=== PATIENT | male | born 2005 | race Caucasian/White ===

== ENCOUNTER 2023-04-23 16:12 | Outpatient (AMB) | payer OTHER, SELFPAY ==
--- NOTE | 2023-04-23 16:18 | AM.OFFWIN_ITS ---
Intake Vital Signs 04/23/23 16:32 Weight 178 lb BP 116/74 Blood Pressure Location Rt brachial Position Sitting Pulse 84 Pulse Source Pulse Oximeter Temp 98.6 F Temp Source Temporal Artery Scan Pulse Oximetry (%) 97 Oxygen Delivery Method Room Air Intake Visit Reasons: EST/congestion Intake Note: Patient here for some congestion that has been present for about 3 days. today he is feeling better but he had chest pain which made it harder to breath, vomiting. Mom states he had asthma as a child and was on a nebulizer and inhaler. Patient Tobacco Use Status: Never used Tobacco Allergies No Known Allergies Allergy (Verified 04/23/23 16:36) Do you need a note to return to daycare/school/sports/work: Yes HPI HPI Comments History of Present Illness Details 17-year-old otherwise healthy male who p resents for chest congestion. Patient states that he developed a viral respiratory infection approximately 2 days ago experiencing coughing congestion. Since then his cough and congestion is improved but he has been experiencing some pain with deep inspiration and some generalized fatigue. Denies fevers chills other symptoms PFSH Social History Patient Tobacco Use Status: Never used Tobacco Review of Systems Const All systems reviewed & are unremarkable except as noted in HPI and below Resp Reports chest congestion and Reports cough Physical Exam Vital Signs: Last Vital Signs Temp 98.6 F 04/23/23 16:32 Pulse 84 04/23/23 16:32 BP 116/74 04/23/23 16:32 Pulse Ox 97 04/23/23 16:32 Oxygen Delivery Method Room Air 04/23/23 16:32 Const General: cooperative, no acute distress and alert Orientation/consciousness: patient oriented x3 Limitations: no limitations HEENT Head: Yes normal to inspection Ears: hearing grossly normal bilaterally and external ears normal General nose exam: Normal external nose present Eyes General: appearance normal, both eyes and all related structures Neck Neck: Yes normal visual inspection Chest Chest palpation & inspection: normal inspection of the chest Resp Effort & Inspection: normal respiratory effort, able to speak in complete sent ences and no audible wheezes Auscultation: clear to auscultation bilaterally Cardio Rate: regular rate Rhythm: regular rhythm GI Inspection: Yes normal to inspection Palpation (GI): Soft to palpation and nontender Skin General skin exam: no rashes or lesions noted Neuro General: patient oriented x3 Psych Appearance: grossly normal Mental Status: mental status grossly normal Speech and movement: Normal speech and movement present Affect: normal affect Attitude: cooperative Thought process: Normal thought process present Thought content: Normal thought content present Assessment & Plan Assessment & Plan (1) Pleurisy: Code(s): R09.1 - Pleurisy Plan: VSs per exam patient presents alert and oriented no acute distress exam is otherwise unremarkable note above given patient's symptoms likely suffering from post viral fatigue and pleurisy. Low suspicion for acute pathology at this time recommend symptomatic treatment if symptoms do not improve patient can follow up in 1 week for for chest x-ray. Discharge instructions, follow up and treatment are discussed with patient in my usual fashion. Alternatives in treatment are also discussed. The patient will return for worsening symptoms or as needed. Advised that any labs/imaging ordered will be followed up on and contact made if further treatment needed. Counseled that patient's condition may require further evaluation and/or tr eatment. Symptoms of concern for worsening disorder discussed in detail in my customary manner. Patient does verbalize understanding of the plan, there are no apparent barriers to communication. The patient is given the opportunity to ask questions and have them answered to his/her satisfaction Coding Level of Care Code Est Pt Level 2 (10773) Diagnoses Pleurisy R09.1
[2023-04-23 16:32] VITALS: BP 116/74; PULSE 84; TEMP 37; O2SAT 97
== END 2023-04-23 16:47 | disposition home or self-care (01) ==
PROVIDERS: PCP Internal Medicine Endocrinology, Diabetes & Metabolism; Visit Provider Physician Assistant
DX: R09.1 Pleurisy (principal)
CPT/HCPCS: 99212

== ENCOUNTER 2023-05-12 09:00 | Outpatient (AMB) | payer OTHER, SELFPAY ==
--- NOTE | 2023-05-12 09:36 | AM.OFFWIN_ITS ---
Intake Vital Signs 05/12/23 09:42 Height 5 ft 10 in Weight 139 lb 4 oz BMI 20.0 BP 110/70 Blood Pressure Location Lt brachial Position Sitting Pulse 102 H Pulse Source Pulse Oximeter Temp 99.0 F Temp Source Temporal Artery Scan Pulse Oximetry (%) 98 Intake Visit Reasons: EP, abdominal pain Intake Note: pt is here for c/o abd pain possibly due to IBS diagnosed years ago but stopped medication, states pain is very bad Patient Tobacco Use Status: Never used Tobacco Allergies No Known Allergies Allergy (Verified 05/12/23 09:37) Do you need a note to return to daycare/school/sports/work: Yes HPI HPI Comments History of Present Illness Details 17-year-old male history of IBS and cons tipation that presents for abdominal pain. Patient states he has had off and on Dom pain for some years seen a GI diagnosed with IBS. In addition for the last 4 days off and on he has had severe abdominal pain in the left upper quadrant and occasionally left lower. Denies fevers chills nausea vomiting other symptoms. PFSH Social History Patient Tobacco Use Status: Never used Tobacco Review of Systems GI Reports abdominal pain Physical Exam Vital Signs: Last Vital Signs Temp 99.0 F 05/12/23 09:42 Pulse 102 H 05/12/23 09:42 BP 110/70 05/12/23 09:42 Pulse Ox 98 05/12/23 09:42 BMI result Body Mass Index 20.0 Const General: healthy appearing, comfortable, no acute distress and alert Orientation/consciousness: patient oriented x3 Limitations: no limitations HEENT Head: Yes normal to inspection Ears: hearing grossly normal bilaterally Resp Effort & Inspection: normal respiratory effort and able to speak in complete sentences Cardio Rate: regular rate GI Other: Soft non peritoneal mild tenderness left upper quadrant. Skin General skin exam: no rashes or lesions noted Neuro General: patient oriented x3 Extrem General: Yes normal to inspection Assessment & Plan Assessment & Plan (1) Abdominal pain: Code(s): R10.9 - Unspecified abdominal pain Qualifiers: Abdominal location: left upper quadrant Qualified Code(s): R10.12 - Left upper quadrant pain Plan: VSS. On exam patient is alert oriented no acute distress exam is notable for question of left upper quadrant tenderness to palpation exam otherwise unremarkable. Given patient's mentation considerations constipation versus IBS flare. Low suspicion for acute appendicitis given negative McBurney point tenderness a suspicion for cholecystitis given negative Rock sign the absence of nausea vomiting or fever non peritoneal would recommend patient to trial warren wel cleanout given history of constipation and follow-up with his GI doctor. Also discussed that limitations of theirs care with the patient and that it is recommended that he go to the emergency room for further workup and imaging. Patient declined at this time will try bowel clean now at home 1st. Which I do not feel is unreasonable. Discharge instructions, follow up and treatment are discussed with patient in my usual fashion. Alternatives in treatment are also discussed. The patient will return for worsening symptoms or as needed. Advised that any labs/imaging ordered will be followed up on and contact made if further treatment needed. Counseled that patient's condition may require further evaluation and/or treatment. Symptoms of concern for worsening disorder discussed in detail in my customary manner. Patient does verbalize understanding of the plan, there are no apparent barriers to communication. The patient is given the opportunity to ask questions and have them answered to his/her satisfaction Coding Level of Care Code Est Pt Level 3 (86263) Diagnoses Left upper quadrant abdominal pain R10.12 Abdominal location: left upper quadrant
[2023-05-12 09:42] VITALS: BP 110/70; PULSE 102; TEMP 37.2; O2SAT 98
== END 2023-05-12 10:06 | disposition home or self-care (01) ==
PROVIDERS: PCP Internal Medicine Endocrinology, Diabetes & Metabolism; Visit Provider Physician Assistant
DX: R10.12 Left upper quadrant pain (principal)
CPT/HCPCS: 99213

== ENCOUNTER 2025-07-10 13:31 | Emergency (ER) | payer OTHER, SELFPAY ==
--- NOTE | 2025-07-10 13:57 | ED_ITS ---
HPI - General Adult General Chief complaint: Nausea/Vomiting/Diarrhea Stated complaint: Vomiting Time Seen by Provider: 07/10/25 14:21 Source: patient and old records reviewed Mode of arrival: ambulatory Limitations: no limitations History of Present Illness ED Provider: MIGUEL MARTINI narrative: 19-year-old male with no significant past medical history he has been having daily a.m. vomiting and abdominal discomfort on and off depending on what he eats mostly left upper quadrant. He has increased acid sometimes it does respond to Tums. He has never been worked up for this and does not see a GI doctor. He has no diarrhea or bloody stools. He occasionally takes Motrin but not on a daily basis. He has never been prescribed any antacid before. MD complaint: heartburn Onset (ago): month(s) (1.5) Location: mouth Radiation: non-radiation Severity: moderate Quality: burning and aching Pain Consistency: intermittent Relieving factors: none Exacerbating factors: eating and other (Laying down) Associated symptoms: nausea/vomiting Treatments prior to arrival: none Related Data Previous Rx's ?Medication ?Instructions ?Recorded famotidine 20 mg tablet (Pepcid) 40 mg (2 x 20 mg) PO DAILY 07/10/25 abdominal discomfort #60 tabs ondansetron 4 mg disintegrating 4 mg PO Q8H PRN nausea and 07/10/25 tablet vomiting #20 tabs sucralfate 1 gram tablet (Carafate) 1 g PO BID 7 days #14 tabs 07/10/25 Allergies Allergy/AdvReac Type Severity Reaction Status Date / Time No Known Allergies Allergy Verified 07/10/25 14:00 Review of Systems 2 Review of Systems: Yes all other systems are reviewed and are negative PMFSH Past Medical History Attestation statement: The following information was validated with the patient. Source: old records reviewed Medical History Abdominal pain Social History Social History Patient Tobacco Use Status: Never used Tobacco Physical Exam ED Vital Signs: Vital Signs - 24 hr 07/10/25 13:58 07/10/25 14:36 Temperature 98 F 97.9 F Pulse Rate 90 77 Respiratory Rate 16 18 Blood Pressure 164/58 H 120/62 Pulse Oximetry 99 99 Oxygen Delivery Method Room Air Room Air BMI result Body Mass Index 20.8 Appearance: Alert. Oriented X3. No acute distress. Eyes: Pupils equal, round and reactive to light. ENT: Pharynx normal. Neck: Normal inspection. Neck supple. CVS: Normal heart rate and rhythm. Pulses normal. Respiratory: No respiratory distress. Breath sounds normal. Abdomen: Soft and nontender. Skin: Skin warm and dry. Normal skin color. Normal skin turgor. Extremities: No lower extremity edema. No calf ttp Neuro: Oriented X 3. No motor deficit. No sensory deficit. CN2-12 intact Course Course Course Narrative: Rapid medical examination performed in triage by Grace Zimmerman PA-C: Patient is a 19 year old male presenting to the emergency department with vomiting every morning. Patient states every morning he vomits and has been for the last 1 month and a half. Detailed physical exam and review of systems are deferred to the primary teaching assistant. Labs ordered. Patient placed back in the waiting room pending room availability and results. Medical Decision Making Medical Decision Making [facility] Narrative: 19-year-old male with no significant past medical history of heartburn he comes in with complaint 1/2 months of a.m. vomiting as well as heartburn made worse by sleeping as well as eating fried and spicy food. At this time I am going to obtain basic labs and likely start on prescription antacids and Carafate. He has absolutely benign abdominal exam Differential Diagnosis Differential Diagnoses: The differential diagnosis associated with the presentation includes GERD, gastritis, heartburn Admission/Observation Consideration of admission/observation: Escalation of care including admission/observation considered Workup is reassuring he is not anemic at this time stable for DC Lab Data [facility] Lab Attestation statement: I reviewed the patient's lab results. 07/10/25 14:16 07/10/25 14:16 Labs: Lab Results 07/10/25 Range/Units 14:16 WBC 7.7 (4.8-10.8) X10*3/uL RBC 5.10 (4.60-5.80) X10*6/uL Hgb 15.0 (14.0-18.0) g/dl Hct 44.3 (42.0-52.0) % MCV 86.9 (80.0-98.0) fL MCH 29.4 (27.0-33.0) pg MCHC 33.9 (31.0-36.0) g/dl RDW 12.8 (11.0-16.0) % Plt Count 269 (160-400) X10*3/uL MPV 9.6 (9.4-12.4) fL Immature Gran % (Auto) 0.3 (0.0-0.4) % Neut % (Auto) 52.1 (45-73) % Lymph % (Auto) 36.8 (20-40) % Lander % (Auto) 7.0 (2-11) % Eos % (Auto) 2.6 (0-4) % Baso % (Auto) 1.2 (0-2) % Lymph # (Auto) 2.8 (1.2-4.9) X10*3/uL Lander # (Auto) 0.5 (0.1-1.2) X10*3/uL Eos # (Auto) 0.2 (0.0-0.4) X10*3/uL Baso # (Auto) 0.1 (0.0-0.2) X10*3/uL Abs Immat Gran (auto) 0.02 (0.00-0.03) X10*3/uL Absolute Neuts (auto) 4.0 (2.0-8.3) x10*3/uL Absolute Nucleated RBC 0.000 (0.0-0.012) X10*3/uL Nucleated RBC % (auto) 0.0 (0.0-0.2) /100WBC Sodium 140 (135-145) mmol/L Potassium 4.1 (3.3-5.1) mmol/L Chloride 105 (96-108) mmol/L Carbon Dioxide 30 H (22-29) mmol/L Anion Gap 9 L (12-20) BUN 18 H (9-16) mg/dL Creatinine 1.11 (0.5-1.4) mg/dL Estim Creat Clear Calc 97.9 Estimated GFR > 60 Random Glucose 78 (60-115) mg/dL Calcium 9.9 (8.4-10.2) mg/dL Magnesium 2.1 (1.6-2.6) mg/dL Total Bilirubin 0.8 (0.0-1.0) mg/dL AST 25 (5-37) U/L ALT 19 (0-40) U/L Alkaline Phosphatase 62 (39-117) U/L Total Protein 8.0 (6.5-8.0) g/dL Albumin 5.0 (3.5-5.0) g/dL Lipase 12 (8-78) U/L Independent Historian Clinical information obtained from an independent historian. History obtained from or confirmed by: Spouse External Record Review External record reviewed: Outpatient record Prescription Management I considered prescription management with: Other Discharge Plan Discharge Clinical Impression: Abdominal pain Qualifiers: Abdominal location: left upper quadrant Qualified Code(s): R10.12 - Left upper quadrant pain GERD (gastroesophageal reflux disease) Qualifiers: Esophagitis presence: with esophagitis Esophagitis bleeding: without hemorrhage Qualified Code(s): K21.00 - Gastro-esophageal reflux disease with esophagitis, without bleeding Patient Disposition: Home, Self-Care Instructions: Diet for Stomach Ulcers and Gastritis (ED), GERD (Gastroesophageal Reflux Disease) (ED), Abdominal Pain (ED) Additional Instructions: At this time her labs are reassuring You need to avoid NSAIDs but Tylenol is okay You should avoid any triggers such as fried food and spicy food Take all medications as prescribed Please stay upright 1 hour after eating do not lay down Return for any worsening symptoms or concerns Prescriptions: New famotidine [Pepcid] 20 mg tablet 40 mg PO DAILY Qty: 60 2RF ondansetron 4 mg tablet,disintegrating 4 mg PO Q8H PRN (Reason: nausea and vomiting) Qty: 20 0RF sucralfate [Carafate] 1 gram tablet 1 g PO BID 7 Days Qty: 14 0RF Referrals: [facility] [place] [facility] [Provider Group, Gastroenterology] Stand Alone Forms: Work/School Release Interventions: ED Discharge Assessment Last Done: 07/10/25 14:45 Print Language: Kinyarwanda
[2025-07-10 13:58] VITALS: BP 164/58; PULSE 90; RESP 16; TEMP 36.6; O2SAT 99; BMI 20.8
[2025-07-10 14:24] LABS: Hematocrit 44.3 % (42.0-52.0); Hemoglobin 15.0 g/dl (14.0-18.0); Imm Gran Abs Auto 0.02 X10*3/uL (0.00-0.03); Imm Gran Pct Auto 0.3 % (0.0-0.4); Lymphocytes Absolute Auto 2.8 X10*3/uL (1.2-4.9); MANUAL DIFF FLAG NO; Mean Corpuscular HGB Conc 33.9 g/dl (31.0-36.0); Mean Corpuscular Hemoglobin 29.4 pg (27.0-33.0); Mean Corpuscular Volume 86.9 fL (80.0-98.0); NRBC Abs Auto 0.000 X10*3/uL (0.0-0.012); NRBC Pct Auto 0.0 /100WBC (0.0-0.2); Platelet Count 269 X10*3/uL (160-400); Red Blood Count 5.10 X10*6/uL (4.60-5.80); White Blood Count 7.7 X10*3/uL (4.8-10.8)
[2025-07-10 14:36] VITALS: BP 120/62; PULSE 77; RESP 18; TEMP 36.6; O2SAT 99
[2025-07-10 14:38] LABS: Alanine Aminotransferase 19 U/L (0-40); Albumin Level 5.0 g/dL (3.5-5.0); Alkaline Phosphatase 62 U/L (39-117); Anion Gap 9 (12-20); Aspartate Amino Transferase 25 U/L (5-37); Blood Urea Nitrogen 18 mg/dL (9-16); Calcium 9.9 mg/dL (8.4-10.2); Carbon Dioxide 30 mmol/L (22-29); Chloride 105 mmol/L (96-108); Creatinine Clr Calc Pharmacy 97.9; Estimated Glomerular Filt Rate > 60; Lipase 12 U/L (8-78); Magnesium 2.1 mg/dL (1.6-2.6); Potassium 4.1 mmol/L (3.3-5.1); Sodium 140 mmol/L (135-145); Total Protein 8.0 g/dL (6.5-8.0)
[2025-07-10 14:45] VITALS: BP 120/62; PULSE 77; RESP 18; TEMP 36.6; O2SAT 99
--- OUTSIDE RECORDS SUMMARY | 2025-07-10 21:16 | XMS_ITS | Clinical Summary ---
Author Organization [address] Address [address] [place] [phone] Phone Care Team Providers Care Fish Drier Name Role Phone Heidi Lara MD Primary Care Prov ider Allergies Active Allergy Reactions Criticality Noted Date Comments Other 11/08/2018 Food Nutella and V-8 splash Medications psyllium (METAMUCIL) 3.[address] 1 rounded teaspoon in 8 ounces of water 1-3 times daily as needed for constipation. 4 Active albuterol HFA (PROAIR HFA ; PROVENTIL HFA ; VENTOLIN HFA) 90 mcg/actuation inhaler Inhale 2 Puffs into the lungs every 4 hours as needed for Cough, Wheezing or Shortness of Breath. Substitution permitted to whichever brand and/or generic equivalent is covered by insurance. 3 Active loratadine (CLARITIN) 10 mg tablet Take 1 Tablet by mouth daily as needed for Allergies. As needed for allergies 2 Active EPINEPHrine (EpiPen 2-Ed) 0.3 mg/0.3 mL injection Inject 0.3 mL as directed as needed for Other (allergic reaction). Fill with whatever brand is covered by insurance 0 Active Active Problems Problem Noted Date Diagnosed Date Marijuana use 10/19/2023 Marijuana abuse 07/03/2021 Severe episode of recurrent major depressive disorder, without psychotic features 07/03/2021 IBS (irritable bowel syndrome) 12/14/2020 Overview (07/30/2024): With vomiting, seen in ER then [facility] 12/14 - sofiya acute gastroenteritis; in ER had CT scan reported to show colitis; trial of omeprazole for 2 weeks Also sofiya has IBS - with constipation, improved with miralax - advised on IBS diet, started on hyoscyamine; labs nl (CBC, ESR, CMP, CRP) recheck one month 01/14- Pedi GI - pain and vomiting resolved but still with poor appetite, nausea whten eating - restart omeprazole and take for 2-3 mos; continue hycosamine and cyproheptadine; if sx do not improve will need endoscopy 05/16- Pedi Gi - recurrence of sx - L sided abdominal pain, nausea, vomiting - likely related to stess and anxiety but to have upper endoscopy, labs; continue omeprazole, hyoscyamine, cyproheptadine, IBS diet, zofran prn 05/16- back sizer visit at [facility] GI - IBS counseling given, recheck prn 06/16- screening labs nl; endoscopy showed evidence of mild reflux and mild gastritis; continue omeprazole 20 mg BID for 2-3 months and strt carafate 1 capsule TID for 4 weeks Biopsies showed mild chronic gastritis and mild reflux; continue omeprazole BID for 3 months and carafate TID for 8 weeks. Recheck in 3 months 12/2021- likely has IBS with constipation. Wean off PPI, cont cyproheptadine, KUB. F/u 4/6 wks 02/2022- KUB showed moderate stool, recommended miralax and dulcolax was unable to do complete bowel clean out. Stools hard. No longer on omeprazole. Lost 5 lbs in 1 mon. Recommended inc cyproheptadine, consider colonscopy. Fecal calprotectin testing F/u 4-6 wks. Depression 06/02/2018 Overview (07/30/2024): 06/13 - declines ref for therapy 06/14- in therapy at [facility] after he started cutting 12/14 - on escitalopram (lexapro) Migraine syndrome 05/31/2018 Overview (07/30/2024): Onset 06/13 10/12 -start periactin 4 - 8 mg at HS 12/12- periactin decreased to 4 mg and started riboflavin and magnesium 01/12- doing well on above Iron deficiency anemia 06/01/2017 Overview (07/30/2024): Mild 06/12 - multivit with iron; improved 06/13, continue same Allergic conjunctivitis 09/20/2015 Overview (07/30/2024): 09/11 - ?to cats allergic, ketotifen gtts Last Assessment & Plan: 09/11 - ?to cats allergic , ketotifen gtts Constipation 02/14/2015 Overview (07/30/2024): 12/08 - miralax 9-16 improved prn miralax 06/12 - occ sx 12/14 - on miralax Last Assessment & Plan: 9- improved prn miralax Sleep disorder 02/21/2014 Overview (07/30/2024): 9-16 resolved 06/14 -melatonin 06/15- doing well Last Assessment & Plan: 9- resolved Hyperkeratosis 02/20/2012 Overview (07/30/2024): 9-16 prn moisturizer Last Assessment & Plan: 9-16 prn moisturizer Acute sinusitis 06/23/2011 Overview (07/30/2024): 06/06, 04/14 ADHD (attention deficit hype ractivity disorder), combined type 07/15/2010 Overview (07/30/2024): Diagnosed 07/05, trial adderall xr 5 mg - caused violent outbursts Trial 08/06 metadate CD - violent outbursts Trial straterra 08/06 (pt refused) and refer to [facility] for med eval and [facility] for counseling [facility] eval Dr Lucas 09/06 - trial tenex - not effective 01/05 - therapist Rhiannon [facility] 04-11 import/export specialist in home and [facility] therapist Derrick wkly visits No meds 06/13 - no therapist; mild depression, declines ref for therapy Last Assessment & Plan: 04-11 import/export specialist in home and [facility] therapist [facility] wkly visits No meds Asthma 11/11/2006 Overview (07/30/2024): with pneumonia 06/01, with URI/strep 09/02 - albuterol and pulmicort, 11/01 Flovent 05/04 - never used it; again 06/06, dose increased 08/07 As of 03/10 - no controller med and rare need for albuterol 05/12 - no sx 06/13 - no sx Last Assessment & Plan: As of 03/10 - no controller med and rare need for albuterol Streptococcal sore throat 11/11/2006 Overview (07/30/2024): 09/02, 10/31, 11/04, 09/14 Acute suppurative otitis med ia without spontaneous rupture of ear drum 07/03/2006 Overview (07/30/2024): 08/31, 04/30, 07/01, 01/30, 08/04, 09/06, 10/04, 08/07 IMO update Pneumonia 06/08/2006 Overview (07/30/2024): 06/01, 07/03, 07/06, 04/14 Immunizations Immunization Administration Dates Next Due DTaP (Infanrix) 6wks to less than 7yo ,05/01/2004,03/05/2004,01/01 DTaP / Hib 02/11/2005 OPdR-UVW-UNM (Pentacel) 2mo to less than 5yo 05/01/2004,03/05/2004,01/02/2004 HPV 9-valent (Gardisil) 9yo to less than 46yo 04/08/2022,07/03/2021,06/26/2020 Hepatitis B Pediatric (Enger ix B; Recombivax HB) to less than 20 yo 08/16/2004,2003,2003 IPV Inactivated polio (Ipol) 6wks and older 11/26/2007,08/16/2004,03/05/2004,01/01 Influenza trivalent, 0.5mL, preservative free (Fluarix; FluLaval; Fluzone) ages 6mo and older (Afluria) 3 years and older 04/30/2020,05/31/2018,05/10/2007 MMR, measles mumps and rubel la Live (Priorix; M-M-R II) 12mo and older 11/29/2008,02/11/2005 Meningococcal MCV4P 05/29/2020,03/01/2015 PPD Test 08/09/2010 Pneumococcal Conjugate Vacci ne, 7 Valent 11/19/2004,05/01/2004,03/05/2004,01/01 Tdap Tetanus diptheria acell ular pertussis (Boostrix; Adacel) 7yo and older 07/03/2021,08/29/2013 Varicella live (Varivax) 12m o and older 11/29/2008,11/19/2004 Surgical History Surgery Date Site/Laterality Comments CIRCUMCISION, PRIMARY PROCEDURE: HISTORICAL CIRCUMCISION Medical History Medical History Date Comments Wheezing 11/11/2006 DX:Wheezing; COM MENT: with pneumonia 06/01, with URI/strep 09/02 - albuterol and pulmicort Neb home Esophageal reflux DX:Esophageal reflux; COMMENT: as , no meds Pneumonia, organism unspecified(486) 06/08/2006 DX:Pneumonia, organism unspecified(486); COMMENT: ,06/01, 07/03 Lack of normal physiological development, 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 DX:Lack of normal physiologi dasia development, unspecified; COMMENT: EI for lang delay, re-eval at age 30 mos - mild delay in cognition, language and social skills Infectious mononucleosis 2009 DX:Infe ctious mononucleosis; COMMENT: likely, evidence on serology in workup for lymphadenopathy Cervical lymphadenopathy 08/09/2010 DX:Cerv ical lymphadenopathy; COMMENT: Onset May 2010 CBC, CXR neg Pedi ID 10/04 - reactive lymphadenopathy, labs negative Allergic conjunctivitis 09/20/2015 DX:Aller gic conjunctivitis; COMMENT: 09/11 - ?to cats, ketotifen gtts Overweight(278.02) 02/21/2013 DX:Overweight (278.02); COMMENT: Mild, since age 2 ADHD (attention deficit hype ractivity disorder), combined type 07/15/2010 DX:ADHD (attention deficit hyperactivity disorder), combined type; COMMENT: Diagnosed 07/05, trial adderall xr 5 mg - caused violent outbursts Trial 08/06 metadate CD - violent outbursts Trial straterra 08/06 (pt refused) and refer to [facility] for med eval and [facility] for counseling [facility] eval Dr Lucas 09/06 - trial tenex - not effective 01/05 - therapist Rhiannon [facility] [address] [facility] Hyperkeratosis 02/20/2012 DX:Hyperkeratosi s Acute sinusitis 06/23/2011 DX:Acute sinusit is; COMMENT: 06/06 Dyshidrosis 04/12/2010 DX:Dyshidrosis; COMMENT: Dermatology 04/05 Hydrocortisone Streptococcal sore throat 11/11/2006 DX:Str eptococcal sore throat; COMMENT: 09/02, 10/31, 11/04 Asthma 11/11/2006 DX:Asthma; COMME NT: with pneumonia 06/01, with URI/strep 09/02 - albuterol and pulmicort, 11/01 Flovent 05/04 - never used it; again 06/06, dose increased 08/07 As of 03/10 - no controller med and rare need for albuterol Acute suppurative otitis med ia without spontaneous rupture of ear drum 07/03/2006 DX:Acute suppurative otitis media without spontaneous rupture of ear drum; COMMENT: 08/31, 04/30, 07/01, 01/30, 08/04, 09/06, 10/04, 08/07 [facility] update Unspecified family circumstance 10/28/2016 DX:Unspecified family circumstance; COMMENT: 11-10 active 51A case Sleep disorder 02/21/2014 DX:Sleep disorde r; COMMENT: 04-11 resolved Constipation 02/14/2015 DX:Constipation; COMMENT: 12/08 - miralax 04-11 improved prn miralax 06/12 - occ sx Overweight 02/21/2013 DX:Overweight; C OMMENT: Mild, since age 2 04-11 refused nutrition 05/12 - improved 06/13- resolved RLQ abdominal pain 11/10/2019 DX:RLQ abdomi nal pain; COMMENT: 11/13- with vomiting and dehydration, seen by Pedi Surg then sent to ER, US did not visualize appendix; given IV fluids and zofran, discharged with rx for zofran Ankle sprain 01/25/2019 DX:Ankle sprain; COMMENT: 01/12 - seen at [facility] due to persistent sx and ? Of [place] I fx; - air splint and refer to PT Knee pain, left 05/24/2018 DX:Knee pain, le ft; COMMENT: 06/12 - ref to PT, again 12/12 - seen at [facility], discharged with home exercise program Family History Medical History Relation Name Comments Other: autism Brother Other: wheezing Sister 1 gma Relation Name Status Comments Brother Father Alive Mother Alive 01/24/80 Coco Sister 1 Sister 2 Alive Sister 3 Alive Social History Tobacco Use Types Packs/Day Years Used Date Smoking Tobacco: Never Cigarettes 0 Qu it: 08/18/2008 Smokeless Tobacco: Never Alcohol Use Standard Drinks/Week Comments No 0 (1 standard drink = 0.6 oz pur e alcohol) Sex and Gender Information Value Date Recorded Sex Assigned at Not on file Legal Sex Male 6:35 AM EST Gender Identity Not on file Sexual Orientation Not on file Last Filed Vital Signs Vital Sign Reading Time Taken Comments Blood Pressure 110/57 10/19/2023 9:22 AM EDT provider will be recheck Pulse 59 10/19/2023 9:22 AM EDT Temperature - - Respiratory Rate - - Oxygen Saturation - - Inhaled Oxygen Concentration - - Weight 66.2 kg (146 lb) 10/19/2023 9:22 AM EDT Height 182.9 cm (6') 10/19/2023 9:22 AM EDT Body Mass Index 19.8 10/19/2023 9:22 AM EDT Plan of Treatment Upcoming Encounters Date Type Department Care Team (Late st Contact Info) Description 08/01/2025 3:00 PM EST Office Visit Adult Medicine [facility] [address] [place], [place] [phone] Amanda Hensley PA [address] [place], [place] Health Maintenance Due Date Last Done Comments Pneumococcal Vaccine: Pediatrics (0 to 5 Years) and At-Risk Patients (6 to 49 Years) (1 of 1 - PPSV23, PCV20, or PCV21) 10/30/2009 11/19/2004, 05/01/2004, 03/05/2004, Additional history exists Meningococcal B Vaccine (1 of 2 - Standard) 2019 HIV Screening 06/29/2022 Hepatitis C Screening 06/29/2022 Social Influencers of Health Screening 06/29/2022 Annual Well Child Visit (3-21 years old) 07/03/2022 07/03/2021, 06/26/2020, 06/13/2019, Additional history exists Hepatitis A Vaccines (1 of 2 - Risk 2-dose series) 10/30/2022 Depression Screening 07/27/2024 10/19/2023 COVID-19 Vaccine (3 - season) 2025 03/09/2021, 02/15/2021 Influenza Vaccine (#1) 2025 , 05/31/2018, 05/10/2007 DTaP,Tdap,and Td Vaccines (7 - Td or Tdap) 07/03/2031 07/03/2021, 08/29/2013, 11/26/2007, Additional history exists RSV Immunization Adult Patients (1 - 1-dose 75+ series) 10/30/2078 Hepatitis B Vaccines Completed 08/16/2004, 2003, 2003 HIB Vaccines Completed 02/11/2005, 12/2003, 03/05/2004, Additional history exists IPV Vaccines Completed 11/26/2007, 07/28, 05/01/2004, Additional history exists MMR Vaccines Completed 11/29/2008, 02/11/2005 Varicella Vaccines Completed 11/29/2008, 11/19/2004 Meningococcal ACWY Vaccine Completed 05/29/2020, HPV Vaccines Completed 04/08/2022, 02/2021, 06/26/2020 RSV Immunization Patients Under 20 months Aged Out No longer eligible based on patient's age to complete this topic Procedures Procedure Name Priority Date/Time Associated Diagnosis Comments DEPRESSION SCREENING Routine 10/19/2023 from Last 3 Months or Most Recently Relevant to Health Maintenance Results * Depression Screening (10/19/2023) HM Depression Screening ABSTRACTED us Historical Provider MD HEALTH MAINTENANCE Final Result from Last 3 Months or Most Recently Relevant to Health Maintenance Insurance [facility] Care Teams Fish Drier Relationship Specialty Start Date End Date Heidi Lara MD [address] [place] [phone] PCP - General 05/28/22
--- OUTSIDE RECORDS SUMMARY | 2025-07-10 21:16 | XMS_ITS | Encounter Summary ---
Author Organization [facility] Address [address] [facility] [address] [place] [phone] Phone Care Team Providers Care Cad Librarian Name Role Phone Pcp, Unknown Primary Care Provider Unavailabl e Encounter Details Date Type Department Care Team (Late st Contact Info) Description 06/24/2023 Procedure Pass [facility], Ct Scan - [address] [address] Social History Tobacco Use Types Packs/Day Years Used Date Smoking Tobacco: Never Smokeless Tobacco: Never Alcohol Use Standard Drinks/Week Comments Never 0 (1 standard drink = 0.6 oz pur e alcohol) Education Answer Date Recorded Are you interested in more education? Not on stephanie e 06/24/2023 Are you concerned about learning? Not on file 06/24/2023 No 06/24/2023 No 06/24/2023 Digital Access Answer Date Recorded No 06/24/2023 No 06/24/2023 Reliable internet access at home? Not on file 06/24/2023 Device with a working camera? Not on file Intimate Partner Violence Answer Date R ecorded Are you denied basic needs s uch as food, clothing, or medical care? No 06/24/2023 In the past 12 months have y ou been in a relationship with a person who hurts, threatens, or tries to control you? No 06/24/2023 Are you denied basic needs s uch as food, clothing, or medical care? No 06/24/2023 In the past 12 months have y ou been in a relationship with a person who hurts, threatens, or tries to control you? No 06/24/2023 Sex and Gender Information Value Date Recorded Sex Assigned at Male 06/24/2023 5:32 PM EST Legal Sex Male 5:31 PM EST Gender Identity Male 06/24/2023 5:32 PM EST Sexual Orientation Straight 06/24/2023 5: 32 PM EST documented as of this encounter Functional Status * Calculated C-SSRS Risk Score (Lifetime/Recent) Answer Date of Assessment Author No Risk Indicated 06/24/2023 9:28 PM Kourtney Aiken RN * [place] Suicide Severity Rating Scale (Screener/Recent Self-Report) Question Answer Date of Assessment Author 1. Wish to be (Past 1 Month) No 06/24/2023 9:28 PM Kourtney Aiken RN 2. Non-Specific Active Suici yessi Thoughts (Past 1 Month) No 06/24/2023 9:28 PM Sona Aiken RN 6. Suicidal Behavior (Lifetime) No 9:28 PM Kourtney Aiken RN documented as of this encounter Plan of Treatment Not on file documented as of this encounter Visit Diagnoses Not on filedocumented in this encounter Additional Health Concerns Infection Onset Date Last Indicated Resolved Time CoV-Risk 06/24/2023 06/24/2023 07/05/2023 1:22 AM EST documented as of this encounter Care Teams Cad Librarian Relationship Specialty Start Date End Date Pcp, Unknown PCP - General 06/24/23 documented as of this encounter Additional Source Comments The information contained in this document represents components of the legal health record. It is not the complete legal health record.[facility]
--- OUTSIDE RECORDS SUMMARY | 2025-07-10 21:16 | XMS_ITS | Clinical Summary ---
Author Organization [facility] Address [address] [address] Phone Care Team Providers Care Shipwright Apprentice Name Role Phone Pcp, Unknown Primary Care Provider Unavailabl e Allergies No known active allergies Medications ondansetron (ZOFRAN-ODT) 4 MG disintegrating tablet Take 1 tablet (4 mg total) by mouth every 8 (eight) hours as needed. 12 tablet 06/24/20 Active amoxicillin-clavul anate (AUGMENTIN) 875-125 mg per tablet Take 1 tablet (875 mg of amoxicillin total) by mouth 2 (two) times a day. 20 tablet 06/24/20 23 Active Social History Tobacco Use Types Packs/Day Years Used Date Smoking Tobacco: Never Smokeless Tobacco: Never Tobacco Cessation:Counseling Given: Not Answered Alcohol Use Standard Drinks/Week Comments Never 0 [...] Orientation Straight 06/24/2023 5: 32 PM EST Last Filed Vital Signs Vital Sign Reading Time Taken Comments Blood Pressure 105/37 06/24/2023 11:09 PM EST Pulse 97 06/24/2023 11:09 PM EST Temperature 37.7 C (99.9 F) 06/24/2023 11:09 PM EST Respiratory Rate 16 06/24/2023 11:09 PM EST Oxygen Saturation 98% 06/24/2023 11:09 PM EST Inhaled Oxygen Concentration - - Weight - - Height - - Body Mass Index - - Plan of Treatment Health Maintenance Due Date Last Done Comments Adult Td,Tdap Booster 2003 MMR VACCINES (1 of 1 - Stand marely series) 10/30/2004 COMBINED DTaP,Tdap,Td (1 - Tdap) 10/30/2010 DEPRESSION SCREENING 2015 SMOKING Hx and SMOKELESS TOB ACCO SCREENING 10/30/2016 HPV VACCINES (1 - Male 3-dos e series) 10/30/2018 MENINGOCOCCAL VACCINES (B) ( 1 of 2 - Standard) 2019 ADOLESCENT UNIVERSAL LIPID SCREENING 10/30/2020 HEPATITIS C SCREENING 10/30/2021 HIV ONE-TIME SCREENING (18-6 5 YEARS) 10/30/2021 INFLUENZA VACCINE (#1) 2025 COVID-19 VACCINE ( - 2024-2 6 season) 2025 HEPATITIS A VACCINES Aged Out No long er eligible based on patient's age to complete this topic HIB VACCINES Aged Out No longer eligi ble based on patient's age to complete this topic MENINGOCOCCAL VACCINES (ACWY) Aged Out No longer eligible based on patient's age to complete this topic PNEUMOCOCCAL VACCINES (0-49 years) Aged Out No longer eligible based on patient's age to complete this topic Medical Devices Not on file Insurance [facility] ALL[facility]CO [facility] ACO [employer] [facility] [employer]CO Care Teams Shipwright Apprentice Relationship Specialty Start Date End Date Pcp, Unknown PCP - General 06/24/23 Additional Source Comments The information contained in this document represents components of the legal health record. It is not the complete legal health record.[facility]
== END 2025-07-10 14:52 | disposition home or self-care (01) ==
LOC: HO.ED 14:50
PROVIDERS: Physician Assistant Medical; Emergency Provider Emergency Medicine; PCP Internal Medicine
DX: R10.12 Left upper quadrant pain (principal); K21.00 Gastro-esophageal reflux disease with esophagitis, without bleeding; R11.2 Nausea with vomiting, unspecified
CPT/HCPCS: 36415; 80053; 83690; 83735; 85025; 99282; 99283

== ENCOUNTER 2025-07-12 19:42 | Emergency (ER) | payer OTHER, SELFPAY ==
[2025-07-12 19:45] VITALS: BP 124/58; PULSE 60; RESP 16; TEMP 36.9; O2SAT 98; BMI 20.8
--- NOTE | 2025-07-12 19:45 | ED.GENADULT ---
HPI - General Adult General Chief complaint: Abdominal Pain Stated complaint: abd pain Time Seen by Provider: 07/12/25 22:43 Source: patient, RN notes reviewed and old records reviewed Mode of arrival: ambulatory Limitations: no limitations History of Present Illness ED Provider: Christiano MARTINI narrative: 19-year-old male presents for evaluation of abdominal pain, nausea and vomiting. Patient reports he has had abdominal pain for about 5 years. His pain is worse every morning any typically vomits on most days. He was seen here a few days ago and was discharged with famotidine, Carafate and Zofran which she reports helped his vomiting but now his pain. He reports he had seen GI a long time ago but not for about 5 years. He does not follow up with them. He reports he has never had any abdominal surgeries. He states in his biological mother has a lot of stomach and GI issues but he is not sure exactly what she has Denies any black or bloody stool Related Data Previous Rx's ?Medication ?Instructions ?Recorded famotidine 20 mg tablet (Pepcid) 40 mg (2 x 20 mg) PO DAILY 07/10/25 abdominal discomfort #60 tabs ondansetron 4 mg disintegrating 4 mg PO Q8H PRN nausea and 07/10/25 tablet vomiting #20 tabs sucralfate 1 gram tablet (Carafate) 1 g PO BID 7 days #14 tabs 07/10/25 Allergies Allergy/AdvReac Type Severity Reaction Status Date / Time No Known Allergies Allergy Verified 07/12/25 19:46 Review of Systems Constitutional: Constitutional: Denies body ache(s), Denies chills, Denies fever(s) and Denies headache(s) Eyes: Eyes: Denies blind spots ENT: Denies vertigo, Denies dizziness and Denies headache(s) Cardiovascular: Cardiovascular: Denies chest pain Respiratory: Respiratory: Denies cough Gastrointestinal: Gastrointestinal: Reports abdominal pain, Denies melena, Denies hematochezia, Reports nausea and Reports vomiting Musculoskeletal: Musculoskeletal: Denies back pain Integumentary/Breasts: Skin/Breast: Denies rash Neurologic: Denies vertigo, Denies dizziness and Denies headache(s) Psychiatric: Psychiatric: Denies anxiety PMFSH Past Medical History Medical History Abdominal pain Social History Social History Alcohol intake: current Alcohol intake frequency: holidays/special occasions only Patient Tobacco Use Status: Never used Tobacco Smoked in Last 30 Days: Yes Use of substances other than those prescribed or required for medical reasons: Yes Substance Use Type: Marijuana Substance Use Frequency: Daily Any prior treatment program specific to substance use: No Advance Directives: No Advance Directives Information Provided: Yes Physical Exam ED Vital Signs: Vital Signs - 24 hr 07/12/25 19:45 07/12/25 22:34 Temperature 98.4 F 98.6 F Pulse Rate 60 69 Respiratory Rate 16 19 Blood Pressure 124/58 L 126/73 Pulse Oximetry 98 98 Oxygen Delivery Method Room Air Room Air BMI result Body Mass Index 20.8 Const General: healthy appearing, comfortable, no acute distress, alert and awake Nutritional Appearance: well nourished Orientation/consciousness: patient oriented x3 HENMT Head: Yes normocephalic and Yes atraumatic Eyes Eyelids: Yes eyelids normal Conjunctivae: conjunctivae normal Sclerae: sclerae normal Corneas: corneas normal Pupils: Equal, round and reactive pupils present EOM: EOMs intact bilaterally Neck Neck: Yes full ROM Resp Effort & Inspection: normal respiratory effort, able to speak in complete sentences, no audible wheezes and not labored Auscultation: clear to auscultation bilaterally Cardio Rate: regular rate Rhythm: regular rhythm GI Inspection: No distended Palpation (GI): Soft to palpation, not firm, no guarding and not rigid Skin General skin exam: no rashes or lesions noted and elasticity normal Neuro General: patient oriented x3 Cranial nerves: Yes Equal, round and reactive pupils present and Yes Bilaterally intact EOM present Cognition (Neuro): normal cognition Extrem Other: Moving all extremities well without any obvious deformities Course Course Course Narrative: This is a rapid medical exam performed by Radha Fulton NP: Additional HPI, ROS, PE not included below will be deferred to primary provider. Patient is a 19y/o M presenting with epigastric pain, nausea, vomiting and diarrhea for past 3 days. Recently seen and dx with gastritis, states can't go to work due to the pain. Plan: viral swabs, labs Medical Decision Making Medical Decision Making MDM Narrative: 19-year-old male presents for evaluation of abdominal pain for the last 5 years. His vital signs within normal limits, his labs are reassuring, no significant anemia, electrolytes within normal limits. The patient was seen here 2 days ago and had a reassuring workup as well. No imaging was ordered. The patient is tender with the left upper quadrant and left lower quadrant. He has no diarrhea or bloody stool. I still did not feel that any emergent imaging is warranted. The patient has chronic abdominal pain for the last 5 years and would benefit from seeing GI. We will treat his pain with a GI cocktail. His last bowel movement was this morning and was normal, he would rest does not appear obstructed Differential Diagnosis Differential Diagnoses: The differential diagnosis associated with the presentation includes Chronic abdominal pain Crohn's disease Celiac disease IBS Lab Data MDM Lab Attestation statement: I reviewed the patient's lab results. No significant abnormalities warranting intervention 07/12/25 20:27 07/12/25 20:27 Labs: Lab Results 07/12/25 Range/Units 20:27 WBC 7.7 (4.8-10.8) X10*3/uL RBC 4.94 (4.60-5.80) X10*6/uL Hgb 14.5 (14.0-18.0) g/dl Hct 43.1 (42.0-52.0) % MCV 87.2 (80.0-98.0) fL MCH 29.4 (27.0-33.0) pg MCHC 33.6 (31.0-36.0) g/dl RDW 12.8 (11.0-16.0) % Plt Count 258 (160-400) X10*3/uL MPV 9.7 (9.4-12.4) fL Immature Gran % (Auto) 0.4 (0.0-0.4) % Neut % (Auto) 45.8 (45-73) % Lymph % (Auto) 41.2 H (20-40) % Phillips % (Auto) 8.9 (2-11) % Eos % (Auto) 2.5 (0-4) % Baso % (Auto) 1.2 (0-2) % Lymph # (Auto) 3.2 (1.2-4.9) X10*3/uL Phillips # (Auto) 0.7 (0.1-1.2) X10*3/uL Eos # (Auto) 0.2 (0.0-0.4) X10*3/uL Baso # (Auto) 0.1 (0.0-0.2) X10*3/uL Abs Immat Gran (auto) 0.03 (0.00-0.03) X10*3/uL Absolute Neuts (auto) 3.5 (2.0-8.3) x10*3/uL Absolute Nucleated RBC 0.000 (0.0-0.012) X10*3/uL Nucleated RBC % (auto) 0.0 (0.0-0.2) /100WBC Sodium 140 (135-145) mmol/L Potassium 4.4 (3.3-5.1) mmol/L Chloride 106 (96-108) mmol/L Carbon Dioxide 28 (22-29) mmol/L Anion Gap 10 L (12-20) BUN 16 (9-16) mg/dL Creatinine 1.05 (0.5-1.4) mg/dL Estim Creat Clear Calc 103.5 Estimated GFR > 60 Random Glucose 86 (60-115) mg/dL Calcium 9.7 (8.4-10.2) mg/dL Magnesium 2.0 (1.6-2.6) mg/dL Total Bilirubin 0.4 (0.0-1.0) mg/dL AST 24 (5-37) U/L ALT 18 (0-40) U/L Alkaline Phosphatase 57 (39-117) U/L Total Protein 7.7 (6.5-8.0) g/dL Albumin 4.8 (3.5-5.0) g/dL Lipase 18 (8-78) U/L Influenza Type A (PCR) NEGATIVE (Negative) Influenza Type B (PCR) NEGATIVE (Negative) RSV RNA Qual (PCR) NEGATIVE (Negative) SARS-CoV-2 RNA (RT-PCR) NEGATIVE (Negative) Discharge Plan Discharge Clinical Impression: Chronic abdominal pain Patient Disposition: Home, Self-Care Instructions: Chronic Abdominal Pain (DC) Additional Instructions: Your workup in the ER today was reassuring. This includes your labs and vital signs. I think he would benefit from seeing GI pain You may be worked up additionally with endoscopy/colonoscopy and/or evaluation for Crohn's or IBD You may continue the medications that were recently prescribed Prescriptions: No Action famotidine [Pepcid] 20 mg tablet 40 mg PO DAILY Qty: 60 2RF ondansetron 4 mg tablet,disintegrating 4 mg PO Q8H PRN (Reason: nausea and vomiting) Qty: 20 0RF sucralfate [Carafate] 1 gram tablet 1 g PO BID 7 Days Qty: 14 0RF Referrals: [facility] [Provider Group, Gastroenterology] Referral Note: Chronic abdominal pain Print Language: Georgian
[2025-07-12 20:35] LABS: MANUAL DIFF FLAG NO
[2025-07-12 20:45] LABS: Hematocrit 43.1 % (42.0-52.0); Hemoglobin 14.5 g/dl (14.0-18.0); Imm Gran Abs Auto 0.03 X10*3/uL (0.00-0.03); Imm Gran Pct Auto 0.4 % (0.0-0.4); Lymphocytes Absolute Auto 3.2 X10*3/uL (1.2-4.9); Mean Corpuscular HGB Conc 33.6 g/dl (31.0-36.0); Mean Corpuscular Hemoglobin 29.4 pg (27.0-33.0); Mean Corpuscular Volume 87.2 fL (80.0-98.0); NRBC Abs Auto 0.000 X10*3/uL (0.0-0.012); NRBC Pct Auto 0.0 /100WBC (0.0-0.2); Platelet Count 258 X10*3/uL (160-400); Red Blood Count 4.94 X10*6/uL (4.60-5.80); White Blood Count 7.7 X10*3/uL (4.8-10.8)
[2025-07-12 20:53] LABS: Alanine Aminotransferase 18 U/L (0-40); Albumin Level 4.8 g/dL (3.5-5.0); Alkaline Phosphatase 57 U/L (39-117); Anion Gap 10 (12-20); Aspartate Amino Transferase 24 U/L (5-37); Blood Urea Nitrogen 16 mg/dL (9-16); Calcium 9.7 mg/dL (8.4-10.2); Carbon Dioxide 28 mmol/L (22-29); Chloride 106 mmol/L (96-108); Creatinine Clr Calc Pharmacy 103.5; Estimated Glomerular Filt Rate > 60; Lipase 18 U/L (8-78); Magnesium 2.0 mg/dL (1.6-2.6); Potassium 4.4 mmol/L (3.3-5.1); Sodium 140 mmol/L (135-145); Total Protein 7.7 g/dL (6.5-8.0)
[2025-07-12 21:12] LABS: Resp Syncy Virus RNA Qual PCR NEGATIVE (Negative); SARS COV2 PCR INHOUSE NEGATIVE (Negative)
--- OUTSIDE RECORDS SUMMARY | 2025-07-12 22:15 | XMS_ITS | Clinical Summary ---
Author Organization [facility] Address [address] [address] Phone Care Team Providers Care Loom Cleaner Name Role Phone Pcp, Unknown Primary Care [...] topic Medical Devices Not on file Insurance [facility] [employer] [facility] [employer]CO [employer] [facility] [employer] Care Teams Loom Cleaner Relationship Specialty Start Date End Date Pcp, Unknown PCP - General 06/24/23 Additional Source Comments The information contained in this document represents components of the legal health record. It is not the complete legal health record.[facility]
--- OUTSIDE RECORDS SUMMARY | 2025-07-12 22:15 | XMS_ITS | Clinical Summary ---
Author Organization [address] Address [address] [place] [phone] Phone Care Team Providers Care Mail Distribution Scheme Examiner Name Role Phone Heidi Lara MD Primary [...] hyoscyamine, cyproheptadine, IBS diet, zofran prn 05/16- social services aide visit at [facility] GI - IBS counseling given, [...] ref for therapy 06/14- in therapy at [facility] after he started cutting 12/14 [...] - not effective 01/05 - therapist [facility] [address] in home and [place] therapist Derrick wkly visits No meds 06/13 - no therapist; mild depression, declines ref for therapy Last Assessment & Plan: 04-[address] in home and [place] therapist Derrick wkly [...] than 7yo ,05/01/2004,03/05/2004,01/01 DTaP / Hib 02/11/2005 LUlC-WDK-DCX (Pentacel) 2mo to less than 5yo 05/01/2004,03/05/2004,01/02/2004 [...] straterra 08/06 (pt refused) and refer to [facility] for med eval and [facility] for counseling MCPAP eval Dr Lucas 09/06 - trial tenex - not effective 01/05 - therapist Rhiannon morrissey [facility] Hyperkeratosis 02/20/2012 DX:Hyperkeratosi s Acute sinusitis [...] 04/30, 07/01, 01/30, 08/04, 09/06, 10/04, 08/07 [facility] update Unspecified family circumstance 10/28/2016 DX:Unspecified family [...] DX:Ankle sprain; COMMENT: 01/12 - seen at [facility] due to persistent sx and ? Of [place] I fx; - air splint and refer to PT Knee pain, left 05/24/2018 DX:Knee pain, le ft; COMMENT: 06/12 - ref to PT, again 12/12 - seen at [facility], discharged with home exercise program Family History [...] 3:00 PM EST Office Visit Adult Medicine [facility] [address], [place] [phone] Amanda Hensley PA [address] [place], [place] Health Maintenance Due Date Last Done [...] Most Recently Relevant to Health Maintenance Insurance [facility] [employer] Care Teams Mail Distribution Scheme Examiner Relationship Specialty Start Date End Date Heidi Lara MD [address] [place] [phone] PCP - General 05/28/22
--- OUTSIDE RECORDS SUMMARY | 2025-07-12 22:15 | XMS_ITS | Encounter Summary ---
Author Organization [facility] Address [address] [facility] [address] [place] [phone] Phone Care Team Providers Care Billing Machine Operator Name Role Phone Pcp, Unknown Primary Care Provider Unavailabl e Encounter Details Date Type Department Care Team (Late st Contact Info) Description 06/24/2023 Procedure Pass [facility], Ct Scan - [address] [address] Social History Tobacco Use Types Packs/Day Years [...] 06/24/2023 9:28 PM Kourtney Aiken RN * [place] Suicide Severity Rating Scale (Screener/Recent Self-Report) Question [...] documented as of this encounter Care Teams Billing Machine Operator Relationship Specialty Start Date End Date Pcp, Unknown PCP - General 06/24/23 documented as of this encounter Additional Source Comments The information contained in this document represents components of the legal health record. It is not the complete legal health record.[facility]
[2025-07-12 22:34] VITALS: BP 126/73; PULSE 69; RESP 19; TEMP 37; O2SAT 98
[2025-07-12] MEDS: Magnesium Hydrox/Alum Hydrox 30 ML ORAL.SUSP PO (23:35)
[2025-07-12] MEDS: Lidocaine HCl Viscous 2 % 15 ML SOLUTION MUCOUS MEM (23:35)
[2025-07-13 00:14] VITALS: BP 126/73; PULSE 69; RESP 19; TEMP 37; O2SAT 98
== END 2025-07-13 00:21 | disposition home or self-care (01) ==
PROVIDERS: Registered Nurse Emergency; Emergency Provider Student in an Organized Health Care Education/Training Program
DX: R10.9 Unspecified abdominal pain (principal); G89.29 Other chronic pain; R11.2 Nausea with vomiting, unspecified; Z03.818 Encounter for observation for suspected exposure to other biological agents ruled out
CPT/HCPCS: 80053; 83690; 83735; 85025; 87637; 99283; 99284